=== PATIENT | female | born 1995 | race Caucasian/White ===

== ENCOUNTER 2018-09-29 10:04 | Emergency (ER) | payer OTHER ==
[2018-09-29 10:11] VITALS: TEMP 98.1; BMI 37.5
--- NOTE | 2018-09-29 10:13 | PDOC ---
History of Present Illness - General Chief Complaint: Pain, Acute Stated Complaint: pain with menstruation Time Seen by Provider: 09/29/18 10:08 - History of Present Illness Initial Comments: 09/29/18 10:35 Ms. Romero is a 23 yo female w/ no known pmh who presents for evaluation of painful menses. Patient reports she has had 6 months of painful periods and that her most recent started yesterday and has been associated with significant pelvic pain/cramping plus nausea. She has been attempting to self treat with motrin (last 9am today, 400mg) with little relief. Patient reports she presented to [facility] however was unable to be seen this AM. Patient has also had recent TVUS for r/o PCOS (approx. 3 weeks ago) however does not know the results at this time. The patient denies chest pain, shortness of breath, headache and dizziness. Denies fever, chills, vomit, diarrhea and constipation. Denies dysuria, frequency, urgency and hematuria. Past History - Past Medical History Allergies/Adverse Reactions: Allergies Allergy/AdvReac Type Severity Reaction Status Date / Time albuterol Allergy Verified 09/29/18 10:06 Home Medications: Ambulatory Orders NK [No Known Home Medication] 09/29/18 COPD: No - Reproductive History Cervical CA: No Dysfunctional Uterine Bleeding: No Ectopic : No Endometrial CA: No Polycystic Ovaries: No Tubal Ligation: No - Suicide/Smoking/Psychosocial Hx Smoking History: Never smoked Hx Alcohol Use: No Drug/Substance Use Hx: No Review of Systems - Review of Systems Comments:: 09/29/18 11:09 GENERAL/CONSTITUTIONAL: No fever or chills. No weakness. HEAD, EYES, EARS, NOSE AND THROAT: No change in vision. No ear pain or discharge. No sore throat. CARDIOVASCULAR: No chest pain or shortness of breath RESPIRATORY: No cough, wheezing, or hemoptysis. GASTROINTESTINAL: +Mild nausea, No vomiting, diarrhea or constipation. GENITOURINARY: +Diffuse pelvic pain, patient also reports the sensation of having to urinate. Reports this is common while she is menstruating. MUSCULOSKELETAL: No joint or muscle swelling or pain. No neck or back pain. SKIN: No rash NEUROLOGIC: No headache, vertigo, loss of consciousness, or change in strength/ sensation. ENDOCRINE: No increased thirst. No abnormal weight change HEMATOLOGIC/LYMPHATIC: No anemia, easy bleeding, or history of blood clots. ALLERGIC/IMMUNOLOGIC: No hives or skin allergy. *Physical Exam - Vital Signs Last Vital Signs Temp Pulse Resp BP Pulse Ox 98.1 F 110 H 18 141/98 100 09/29/18 10:05 09/29/18 10:05 09/29/18 10:05 09/29/18 10:05 09/29/18 10:05 - Physical Exam Comments: 09/29/18 11:10 GENERAL: Awake, alert, and fully oriented, in no acute distress HEAD: No signs of trauma, normocephalic, atraumatic EYES: PERRLA, EOMI, sclera anicteric, conjunctiva clear ENT: Auricles normal inspection, hearing grossly normal, nares patent, oropharynx clear without exudates. Moist mucosa NECK: Normal ROM, supple, no lymphadenopathy, JVD, or masses LUNGS: No distress, speaks full sentences, clear to auscultation bilaterally HEART: Regular rate and rhythm, normal S1 and S2, no murmurs, rubs or gallops, peripheral pulses normal and equal bilaterally. ABDOMEN: +Nonspecific lower abdominal TTP. Soft, normoactive bowel sounds. No guarding, no rebound. No masses EXTREMITIES: Normal inspection, Normal range of motion, no edema. No clubbing or cyanosis. NEUROLOGICAL: Cranial nerves II through XII grossly intact. Normal speech, normal gait, no focal sensorimotor deficits SKIN: Warm, Dry, normal turgor, no rashes or lesions noted. : +No CMT, minimal blood c/w menstruation noted in vaginal vault. Diffuse pelvic TTP. Os closed. Moderate Sedation - Procedure Monitoring Vital Signs: Procedure Monitoring Vital Signs Temperature 98.1 F 09/29/18 10:05 Pulse Rate 110 H 09/29/18 10:05 Respiratory Rate 18 09/29/18 10:05 Blood Pressure 141/98 09/29/18 10:05 O2 Sat by Pulse Oximetry (%) 100 09/29/18 10:05 ED Treatment Course - LABORATORY CBC & Chemistry Diagram: 09/29/18 10:51 09/29/18 10:51 Medical Decision Making - Medical Decision Making 09/29/18 11:33 Ms. Romero is a 23 yo female w/ pmh as described who presents for evaluation of pelvic cramping concerning for PCOS vs. Menstrual cramps vs. infection. Patient evaluated with CBC/CMP/UA/HCG. Bedside pelvic exam negative for acute process; US sent for further evaluation of ovaries. Motrin 400 given in addition to 400 taken at home. 09/29/18 12:27 US normal. Labs grossly wnl as below. Patient reporting relief from symptoms with additional motrin. No concern for acute process at this time. Discharging to home with instructions to control pain w/ OTC motrin and f/u w/ [facility]. Patient verbalized understanding and agreement with plan and will comply. *DC/Admit/Observation/Transfer Diagnosis at time of Disposition: Severe menstrual cramps - Discharge Dispostion Disposition: HOME Condition at time of disposition: Stable - Referrals - Patient Instructions Printed Discharge Instructions: DI for Dysmenorrhea Additional Instructions: You were evaluated today in the ER for your pain. We did labs, urine analysis, and ultrasound with no concerning findings. Your pain improved with motrin. You may continue to control your pain with over the counter motrin. Please follow- up with [facility] as soon as possible as discussed. Return to ER if any fever, chills, increase in pain, or other concerning symptoms. - Post Discharge Activity
[2018-09-29] MEDS ORDERED: SODIUM CHLORIDE 1,000 ML IV STA (10:22)
[2018-09-29] MEDS ORDERED: IBUPROFEN 400 MG TABLET (FP) PO ONE ×2 (10:23→10:52)
[2018-09-29] MEDS ORDERED: ONDANSETRON 4 MG/2 ML VIAL IVPB ONE (10:23)
[2018-09-29 10:37] LABS: HCG,QUALITATIVE URINE Negative
[2018-09-29 10:40] LABS: PH,URINE 6.5 (4.5-8); URINE BILIRUBIN Negative (NEGATIVE); URINE GLUCOSE (UA) Negative (NEGATIVE); URINE KETONE Negative (NEGATIVE); URINE LEUK ESTERASE TRACE (NEGATIVE); URINE NITRITE Negative (NEGATIVE); URINE PROTEIN Negative (NEGATIVE); URINE UROBILINOGEN 0.2 (0.2-1.0)
[2018-09-29 10:54] LABS: EPI CELLS FEW /HPF; URINE RBC >100 /hpf (0-3)
[2018-09-29 10:56] LABS: BASO % 0.6 % (0-2.0); EOS % 0.3 % (0-4.5); HEMATOCRIT 37.7 % (32.4-45.2); HEMOGLOBIN 12.4 GM/dl (10.7-15.3); LYMPH % 17.6 % (8-40); MCH 28.4 pg (25.7-33.7); MCHC 32.9 g/dl (32.0-36.0); MEAN CELL VOLUME 86.5 fl (80-96); MEAN PLT VOLUME 7.7 fl (7.5-11.1); MONO % 4.6 % (3.8-10.2); NEUT % 76.9 % (42.8-82.8); PLATELET COUNT 391 K/MM3 (134-434); RBC 4.36 M/mm3 (3.60-5.2); RDW 12.5 % (11.6-15.6); WHITE BLOOD COUNT 7.1 K/mm3 (4.0-10.8)
--- NOTE | 2018-09-29 10:57 | PDOC ---
Attending Attestation - Resident Resident Name: Prieto Pettyorn - ED Attending Attestation I have performed the following: I have examined & evaluated the patient, The case was reviewed & discussed with the resident, I agree w/resident's findings & plan, Exceptions are as noted - HPI HPI: 09/29/18 10:54 23-year-old female history of obesity, presumed polycystic ovarian syndrome based on elevated testosterone test. Q today with dysmenorrhea. Patient states she has had painful periods for the last 6 months describes painful cramps associated with menses had tried OCPs in the past with no relief of her pain is not currently taking any. States she started her menses today describing diffuse crampy abdominal pain worse in the lower quadrants no fevers no chills she does have a sense of urgency with urination which she frequently has during her periods. No known history of endometriosis no other GI sxs. - Physicial Exam PE: 09/29/18 10:55 Patient is awake alert facial skin is with noted acne lungs are clear bilaterally heart is regular without any murmurs rubs or gallops abdomen is soft there is bilateral lower quadrant tenderness no rebound no guarding no CVA tenderness pelvic exam is noted for scant blood in the vaginal vault the os is closed there is diffuse lower adnexal tenderness and CMT no discharge noted no lesions skin is otherwise warm and dry no rash extremity's are warm and well- perfused - Medical Decision Making 09/29/18 10:56 Differential diagnosis includes dysmenorrhea associated with PCO S, fibroids, ovarian cyst, and other related pain is considered anemia, plan and control with anti-inflammatories transvaginal ultrasound UA UCG and urine culture will obtain a UA to rule out UTI basic labs to rule out associated anemia and TSH 09/29/18 12:22 pt with transabdominal pelvic us performed normal flow bilat ov. urine negative for infection. no anemia. labs unremarkable. will dc fu with obstetrics gynecology physician.
[2018-09-29 11:22] LABS: ALBUMIN 4.1 g/dl (3.5-5.0); ALK PHOS 92 U/L (32-92); ANION GAP 7 MMOL/L (8-16); BILIRUBIN,TOTAL 0.3 mg/dl (0.2-1.0); BLOOD UREA NITROGEN 9 mg/dl (7-18); CALCIUM 9.2 mg/dl (8.4-10.2); CHLORIDE 107 mmol/L (98-107); CO2 21 mmol/L (22-28); GLUCOSE,RANDOM 117 mg/dl (74-106); POTASSIUM 3.8 mmol/L (3.5-5.1); SGOT/AST 20 U/L (10-42); SGPT/ALT 15 U/L (10-40); SODIUM 135 mmol/L (136-145); TOT PROT 7.5 g/dl (6.4-8.3)
[2018-09-29 11:24] LABS: CREATININE < 0.6 mg/dl (0.6-1.3)
[2018-09-29 12:05] LABS: URINE APPEARANCE Not; URINE COLOR Not
[2018-09-29 12:34] VITALS: BP 134/70; PULSE 93
== END 2018-09-29 12:44 | disposition home or self-care (01) ==
LOC: FER 10:04
DX: N94.6 Dysmenorrhea, unspecified (principal); E66.9 Obesity, unspecified; Z68.37 Body mass index [BMI] 37.0-37.9, adult
CPT/HCPCS: 36415; 76856-TC; 80053; 81003; 81015; 84443; 84703; 85025; 87086; 99282-25